=== PATIENT | male | born 1965 | race Caucasian/White ===

== ENCOUNTER → 2024-08-02 20:03 | Outpatient (REF) | payer OTHER, SELFPAY | LOC: MRI 20:03 | PROVIDERS: ATTENDING PHYSICIAN Specialist; FAMILY PHYSICIAN Internal Medicine | DX: K86.2 Cyst of pancreas (principal) | CPT/HCPCS: 74183; A9575 ==

== ENCOUNTER → 2025-09-20 19:24 | Outpatient (REF) | payer OTHER, SELFPAY | LOC: MRI 3T 19:24 | PROVIDERS: ATTENDING PHYSICIAN Specialist; FAMILY PHYSICIAN Internal Medicine Geriatric Medicine | DX: K86.2 Cyst of pancreas (principal) | CPT/HCPCS: 74183; A9575 ==

== ENCOUNTER → 2025-09-27 08:17 | Outpatient (REF) | payer OTHER, SELFPAY | LOC: RCS 08:17 | PROVIDERS: ATTENDING PHYSICIAN Internal Medicine Geriatric Medicine | DX: R73.03 Prediabetes (principal); N52.9 Male erectile dysfunction, unspecified; M72.0 Palmar fascial fibromatosis [Dupuytren]; K86.2 Cyst of pancreas; K82.4 Cholesterolosis of gallbladder; K86.89 Other specified diseases of pancreas; E78.5 Hyperlipidemia, unspecified; K76.89 Other specified diseases of liver; E78.00 Pure hypercholesterolemia, unspecified; J30.9 Allergic rhinitis, unspecified; Z13.31 Encounter for screening for depression; E03.9 Hypothyroidism, unspecified; R00.2 Palpitations | CPT/HCPCS: 93225; 93226 ==